=== PATIENT | female | born 1980 | race Caucasian/White ===

== ENCOUNTER 2017-10-16 20:49 | Emergency (ER) | payer OTHER, SELFPAY ==
[2017-10-16 21:06] LABS: #Basophils 0.1 thou/uL (0.0-0.2); #Eosinphils 0.6 thou/uL (0.0-0.7); #Lymphocytes 2.8 thou/uL (1.20-3.40); #Monocytes 0.7 thou/uL (0.11-0.59); #Neutrophils 9.3 thou/uL (1.40-6.50); %Basophils 0.5 % (0.0-1.0); %Eosinophils 4.3 % (0.0-10.0); %Monocytes 5.1 % (0.0-10.0); %Neutrophils 69.1 % (42.0-75.0); Hemoglobin 16.7 g/dL (12.0-16.0); Mean Corpuscular HGB CONC 35.8 g/dL (32.0-36.0); Mean Corpuscular Hemoglobin 33.9 pg (27.0-31.0); Mean Corpuscular Volume 94.8 fl (81.0-99.0); Platelet Count 252 thou/uL (130-400); RBC Distribution Width 12.1 % (11.5-14.5); Red Blood Cell (RBC) Count 4.91 mill/uL (4.20-5.40); White Blood Cell (WBC) Count 13.4 thou/uL (4.8-10.8)
[2017-10-16 21:21] LABS: BHCG - Serum Negative (NEGATIVE); Pregs Control Background? CLEAR/WHITE (CLR/WHITE); Pregs Control Bar Appear? YES (CONTROL BAR)
[2017-10-16] MEDS ORDERED: Ketorolac Tromethamine 30 MG/ML VIAL ONE (21:25)
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
[2017-10-16 21:39] LABS: ALT (SGPT) 29 U/L (8-55); AST (SGOT) 24 U/L (5-34); Albumin 4.5 g/dL (3.5-5.0); Alcohol 11 mg/dL (Less than 10); Alkaline Phosphatase 88 U/L (40-150); Anion Gap 19 mmol/L (10-20); BUN (Urea Nitrogen) 13 mg/dL (7.0-18.7); Bilirubin, Total 0.4 mg/dL (0.2-1.2); Calc. Creatinine Clearance 0 mL/min (70-130); Calcium 9.4 mg/dL (7.8-10.44); Carbon Dioxide 17 mmol/L (22-29); Chloride 106 mmol/L (98-107); Estimated GFR-MDRD 67; Globulin 3.2 g/dL (2.4-3.5); Glucose 228 mg/dL (70-105); Potassium 3.7 mmol/L (3.5-5.1); Protein, Total 7.7 g/dL (6.0-8.3); Sodium 138 mmol/L (136-145)
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
== END 2017-10-16 22:38 | disposition home or self-care (01) ==
LOC: ERS 20:49
DX: S09.90XA Unspecified injury of head, initial encounter (principal); V89.2XXA Person injured in unspecified motor-vehicle accident, traffic, initial encounter
CPT/HCPCS: 70450; 71045; 72125; 80053; 80307; 84703; 85025; 96361; 96374; G0390; J1885

== ENCOUNTER 2020-11-21 14:37 | Observation (INO) | payer BC, OTHER, SELFPAY ==
[2020-11-21 15:44] LABS: #Basophils 0.1 thou/uL (0.0-0.2); #Eosinphils 0.3 thou/uL (0.0-0.7); #Lymphocytes 1.7 thou/uL (1.20-3.40); #Monocytes 0.7 thou/uL (0.11-0.59); #Neutrophils 5.6 thou/uL (1.40-6.50); %Basophils 1.3 % (0.0-1.0); %Eosinophils 3.4 % (0.0-10.0); %Lymphocytes 20.7 % (21.0-51.0); %Monocytes 7.7 % (0.0-10.0); %Neutrophils 66.8 % (42.0-75.0); Hemoglobin 15.9 g/dL (12.0-16.0); Mean Corpuscular HGB CONC 35.4 g/dL (32.0-36.0); Mean Corpuscular Hemoglobin 34.3 pg (27.0-31.0); Mean Platelet Volume 7.5 fL (7.4-10.4); Platelet Count 250 thou/uL (130-400); RBC Distribution Width 11.8 % (11.5-14.5); Red Blood Cell (RBC) Count 4.63 mill/uL (4.20-5.40); White Blood Cell (WBC) Count 8.4 thou/uL (4.8-10.8)
[2020-11-21 16:05] LABS: ALT (SGPT) 26 U/L (8-55); AST (SGOT) 18 U/L (5-34); Albumin 4.5 g/dL (3.5-5.0); Alkaline Phosphatase 84 U/L (40-110); Anion Gap 13 mmol/L (10-20); BUN (Urea Nitrogen) 14 mg/dL (7.0-18.7); Bilirubin, Total 0.5 mg/dL (0.2-1.2); Calc. Creatinine Clearance 0 mL/min (70-130); Carbon Dioxide 23 mmol/L (22-29); Chloride 105 mmol/L (98-107); Globulin 2.8 g/dL (2.4-3.5); Glucose 153 mg/dL (70-105); Potassium 3.3 mmol/L (3.5-5.1); Protein, Total 7.3 g/dL (6.0-8.3); Sodium 138 mmol/L (136-145)
[2020-11-21 16:11] LABS: Bilirubin Negative (Negative); Blood, Urine Negative (Negative); Clarity Clear (Clear); Glucose, Urine (Dipstick) Normal (Negative); Ketone, Urine Negative (Negative); Leukocyte Negative Leu/uL (Negative); Nitrite Negative (Negative); Protein, Urine (Dipstick) Negative (Neg-Trace); Specific Gravity, Urine 1.013 (1.002-1.036); Urobilinogen Normal mg/dL (Less than 2); pH, Urine 6.5 (5.0-9.0)
[2020-11-21] MEDS ORDERED: Ketorolac Tromethamine 30 MG/ML VIAL ONE (16:57)
[2020-11-21] MEDS ORDERED: Aspirin 325 MG TAB ONE (16:57)
[2020-11-21] MEDS ORDERED: diphenhydrAMINE 50 MG/ML VIAL ONE (16:57)
[2020-11-21] MEDS ORDERED: Acetaminophen 325 MG TAB PO PRN (19:52)
[2020-11-21] MEDS ORDERED: Ondansetron PF 4 MG/2 ML Vial IVP PRN (19:52)
[2020-11-21] MEDS ORDERED: HYDROcodone/Acetaminophen 7.5/325 mg Tablet PO PRN (19:52)
[2020-11-21] MEDS ORDERED: hydrALAZINE 20 MG/ML VIAL SLOW IVP PRN (19:53)
[2020-11-21] MEDS ORDERED: Labetalol HCl 100 MG/20 ML VIAL SLOW IVP PRN (19:53)
[2020-11-21] MEDS ORDERED: Sodium Chloride 0.9% 1,000 ML IV SCH (20:00)
[2020-11-21] MEDS ORDERED: Morphine 2 MG/ML VIAL SLOW IVP SCH (20:30)
[2020-11-21] MEDS ORDERED: Amlodipine 5 MG TAB PO SCH (20:30)
[2020-11-21] MEDS ORDERED: Aspirin Chewable 81 MG TAB PO SCH (20:30)
[2020-11-21] MEDS ORDERED: Nicotine 21 MG PATCH TD SCH (21:00)
[2020-11-21] MEDS ORDERED: Morphine 2 MG/ML VIAL ONE (21:19)
[2020-11-21] MEDS ORDERED: Amlodipine 5 MG TAB ONE ×2 (21:21→21:22)
[2020-11-21] MEDS ORDERED: Famotidine 20 MG TAB ONE (21:21)
[2020-11-21] MEDS ORDERED: Aspirin Chewable 81 MG TAB ONE (21:21)
[2020-11-21] MEDS ORDERED: NS 0.9% w/ 20 MEQ KCL 1,000 ML ONE (21:26)
[2020-11-21] MEDS: Famotidine 20 MG TAB PO SCH (21:41)
[2020-11-21] MEDS: NS 0.9% w/ 20 MEQ KCL 1,000 ML/1,000 ML BAG IV SCH (21:42)
[2020-11-22 02:59] LABS: SARS-CoV-2 NAA Rapid Test Not Detected (NotDetected)
[2020-11-22 04:40] LABS: #Basophils 0.1 thou/uL (0.0-0.2); #Eosinphils 0.4 thou/uL (0.0-0.7); #Monocytes 0.7 thou/uL (0.11-0.59); #Neutrophils 4.2 thou/uL (1.40-6.50); %Basophils 0.9 % (0.0-1.0); %Eosinophils 5.5 % (0.0-10.0); %Monocytes 9.6 % (0.0-10.0); Hemoglobin 15.1 g/dL (12.0-16.0); Mean Corpuscular HGB CONC 34.8 g/dL (32.0-36.0); Mean Corpuscular Hemoglobin 34.1 pg (27.0-31.0); Mean Platelet Volume 7.3 fL (7.4-10.4); Platelet Count 223 thou/uL (130-400); RBC Distribution Width 11.7 % (11.5-14.5); Red Blood Cell (RBC) Count 4.43 mill/uL (4.20-5.40); White Blood Cell (WBC) Count 7.4 thou/uL (4.8-10.8)
[2020-11-22 05:10] LABS: ALT (SGPT) 21 U/L (8-55); AST (SGOT) 16 U/L (5-34); Albumin 3.7 g/dL (3.5-5.0); Alkaline Phosphatase 74 U/L (40-110); Anion Gap 10 mmol/L (10-20); BUN (Urea Nitrogen) 11 mg/dL (7.0-18.7); Bilirubin, Total 0.4 mg/dL (0.2-1.2); Calc. Creatinine Clearance 0 mL/min (70-130); Calcium 7.7 mg/dL (7.8-10.44); Carbon Dioxide 22 mmol/L (22-29); Cardiac Risk 3.7 (Less than 4.5); Chloride 110 mmol/L (98-107); Cholesterol 142 mg/dl (< 200 Desired); Globulin 2.3 g/dL (2.4-3.5); Glucose 137 mg/dL (70-105); HDL Cholesterol 38 mg/dL (>60 Neg Risk); LDL Cholesterol, Calculated 83 mg/dL; Potassium 3.9 mmol/L (3.5-5.1); Sodium 138 mmol/L (136-145); Triglycerides 104 mg/dL (Less than 150)
[2020-11-22 06:19] VITALS: BMI 33.6
[2020-11-22] MEDS: Famotidine 20 MG TAB PO SCH (08:51)
[2020-11-22] MEDS ORDERED: Enoxaparin Sodium 40 MG/0.4 ML SYRINGE SC SCH (09:00)
[2020-11-22] MEDS ORDERED: Amlodipine 5 MG TAB PO SCH (09:00)
[2020-11-22] MEDS ORDERED: Aspirin 81 mg Enteric Coated Tablet PO SCH (09:00)
[2020-11-22] MEDS ORDERED: Magnevist 469MG/ML 20 ML VIAL ONE (10:32)
[2020-11-22] MEDS: NS 0.9% w/ 20 MEQ KCL 1,000 ML/1,000 ML BAG IV SCH (12:04)
[2020-11-22 15:36] LABS: Hemoglobin A1c 5.2 % (4.0-6.0)
[2020-11-22 15:40] VITALS: BP 146/90; TEMP 97.9
[2020-11-22 15:44] LABS: PTT 28.8 sec (22.9-36.1)
[2020-11-22 15:50] LABS: D-Dimer Test Less than 0.27 *mcg/mL (0.27-0.43)
[2020-11-22 16:07] LABS: Homocysteine 5.43 umol/L (5.08-15.39); Thyroid Stimulating Hormone 2.2205 uIU/mL (0.35-4.94)
[2020-11-23 17:25] LABS: Cardiolipin IgA Ab 1.6 APL-U/mL (<14 Negative); Cardiolipin IgG Ab Less than 0.5 GPL-U/mL (<10 Negative); Cardiolipin IgM Ab 2.6 MPL-U/mL (<10 Negative); EliA APS New Method **** NEW METHOD ****
[2020-11-24 12:10] LABS: Protein C Activity 97 % (78-152)
[2020-11-24 12:11] LABS: Factor VIII Test 168.8 % ACTIVE (56-157)
[2020-11-25 06:27] LABS: HEX PHOS LA Tube 1 40.8 SEC
[2020-11-25 06:28] LABS: HEX PHOS LA Tube 2 39 SEC; Hexagonal Phospholipid Neut 1.8 SEC (0-8.0)
== END 2020-11-22 18:12 | disposition home or self-care (01) ==
LOC: ERS 14:37 → ERHOLD 16:56 → 2SE 11-22 06:14
PROVIDERS: ADMIT Internal Medicine; ATTEND Internal Medicine
DX: R51.9 Headache, unspecified (principal); R20.0 Anesthesia of skin; R22.0 Localized swelling, mass and lump, head; H53.8 Other visual disturbances; I10 Essential (primary) hypertension; F17.210 Nicotine dependence, cigarettes, uncomplicated; E66.9 Obesity, unspecified; Z68.38 Body mass index [BMI] 38.0-38.9, adult; Z88.1 Allergy status to other antibiotic agents; Z20.822 Contact with and (suspected) exposure to COVID-19
CPT/HCPCS: 36415; 70450; 70553; 80053; 80061; 81003; 83036; 83090; 84443; 84484; 85025; 85240; 85300; 85303; 85305; 85307; 85379; 85598; 85610; 85730; 86147; 93005; 93306; 93880; 96372; 96374; 96375; A9579; G0378; J1200; J1650; J1885; J2270; J3480; U0002; U0005